=== PATIENT | male | born 1990 | race Caucasian/White ===

== ENCOUNTER 2016-10-14 17:47 | Emergency (ER) | payer OTHER ==
[2016-10-14] MEDS ORDERED: NO HOME MEDICATION XX (17:58)
[2016-10-14] MEDS ORDERED: PEPCID20 M1 PO (19:51)
== END 2016-10-14 19:57 ==
LOC: EDMED 17:47
DX: R22.1 Localized swelling, mass and lump, neck (principal); R11.0 Nausea; F17.220 Nicotine dependence, chewing tobacco, uncomplicated